=== PATIENT | female | born 1980 | race Caucasian/White ===

== ENCOUNTER → 2017-09-05 | Outpatient (CLI) | payer BC, OTHER ==
[~2017-09-05] MED LIST: ALPR-412 PO; CETI10TA84 PO; LEVO1IUD2 PV; MISCCAP80 PO; PLEXUS PO
== END | disposition home or self-care (01) ==
LOC: C.RDSM 12:15
PROVIDERS: ATTEND Physical Medicine & Rehabilitation Sports Medicine
DX: M25.511 Pain in right shoulder (principal); M25.512 Pain in left shoulder